=== PATIENT | female | born 1990 | race Caucasian/White ===

== ENCOUNTER 2016-07-13 17:40 | Emergency (ER) | payer MEDICARE, OTHER ==
[2016-07-13 17:50] VITALS: RESP 20
[2016-07-13] MEDS ORDERED: methylPREDNISolone SOD SUCCI 125 MG/2 ML VIAL IV STA (17:57)
[2016-07-13] MEDS ORDERED: diphenhydrAMINE 50 MG/ML 1 ML VIAL IVP STA (17:57)
[2016-07-13] MEDS ORDERED: FAMOTIDINE 20 MG/2 ML VIAL IV STA (17:57)
--- NOTE | 2016-07-13 19:28 | ED ---
Allergic Reaction HPI - General Chief complaint: Allergic Reaction Stated complaint: Allergic Reaction Time Seen by Provider: 07/13/16 18:09 Source: patient Mode of arrival: ambulatory Limitations: no limitations - History of Present Illness Initial Comments: This 25-year-old white female presents complaining of an ALLERGIC reaction to bee sting. She states that he be got in her car, went down her shirt and stung her in the upper abdomen. This occurred shortly prior to arrival. She felt dizzy, short of breath, and had some chest pain afterwards. She denies any throat swelling or rash. She did have her EpiPen with her but did not take it. She does have a history of previous severe ALLERGIC reaction to bee stings. No other injuries or complaints or modifying factors. - Related Data Home Medications Medication Instructions Recorded Confirmed Dextroamphetamine/Amphetamine 30 mg PO BID 07/13/16 07/13/16 [Adderall] EPINEPHrine [Epipen 2-Kulwinder] 0.3 mg IM ONCE PRN 07/13/16 07/13/16 OXcarbazepine [Trileptal] 150 mg PO BID 07/13/16 07/13/16 valACYclovir HCL [Valtrex] 500 mg PO DAILY 07/13/16 07/13/16 Previous Rx's Medication Instructions Recorded Famotidine [Pepcid] 20 mg PO BID #6 tablet 07/13/16 diphenhydrAMINE [Benadryl] 25 mg PO QID PRN #12 capsule 07/13/16 predniSONE 20 mg PO BID #6 tab 07/13/16 Allergies Allergy/AdvReac Type Severity Reaction Status Date / Time bee pollen Allergy Anaphylaxis Verified 07/13/16 17:51 Penicillins Allergy Unknown Verified 07/13/16 17:56 Childhood Pertussis Vaccines Allergy Unknown Verified 07/13/16 17:56 Review of Systems ROS Statement: Those systems with pertinent positive or pertinent negative responses have been documented in the HPI. ROS Other: All systems not noted in ROS Statement are negative. Past Medical History Past Medical History: Seizure Disorder History of Any Multi-Drug Resistant Organisms: None Reported Past Surgical History: Section Past Psychological History: ADD/ADHD Smoking Status: Never smoker Past Alcohol Use History: None Reported Past Drug Use History: None Reported General Exam - General Exam Comments Initial Comments: GENERAL: The patient is well nourished and well hydrated. VITAL SIGNS: Heart rate, blood pressure, respiratory rate reviewed as recorded in nurse's notes. EYES: Pupils are round and reactive. Extraocular movements are intact. No conjunctival / lid redness or swelling. ENT: No external evidence of injury, swelling, or ecchymosis. Airway is patent. Throat is clear. NECK: Nontender. No swelling or evidence of injury. No subcutaneous emphysema. Trachea is midline. No thyroid mass. HEART: Regular rate and rhythm. Good peripheral pulses. LUNGS/CHEST: Breath sounds clear and equal bilaterally. No rales, rhonchi, or wheezes. No ecchymosis, subcutaneous emphysema, or tenderness. ABDOMEN: Abdomen soft without tenderness. No palpable masses or organomegaly. No peritoneal signs. No abdominal wall swelling or ecchymosis. EXTREMITIES: No extremity tenderness. Normal muscle tone and function. No thoracolumbar tenderness. NEUROLOGIC: Sensation is grossly intact. Cranial nerve exam reveals face is symmetrical, tongue is midline, speech is clear. SKIN: There is a small puncture-type wound present to the upper abdomen. There is no associated erythema or swelling or other rash or change in pigmentation. PSYCHIATRIC: Alert and oriented. Appropriate behavior and judgment with possible mild anxiety. Limitations: no limitations Course Vital Signs 07/13/16 07/13/16 17:47 18:02 Temperature 97.2 F L Pulse Rate 120 H 111 H Respiratory 20 20 Rate Blood Pressure 121/63 124/74 O2 Sat by Pulse 100 99 Oximetry Medical Decision Making - Medical Decision Making The patient was seen and examined. An IV was established. She did receive some Solu-Medrol, Pepcid, and Benadryl IV. She is watched for quite some time. No further abnormalities are identified. Is felt that she is stable for discharge. She is counseled regarding her diagnosis in detail and leaves in no severe distress. Disposition Clinical Impression: Allergic reaction to insect sting Disposition: HOME SELF-CARE Condition: Good Instructions: Insect Bite or Sting (ED) Prescriptions: diphenhydrAMINE [Benadryl] 25 mg PO QID PRN #12 capsule PRN Reason: Allergic Reaction Famotidine [Pepcid] 20 mg PO BID #6 tablet predniSONE 20 mg PO BID #6 tab Referrals: Jesse Jacskon MD [Primary Care Provider] - 1-2 days Time of Disposition: 19:25
[2016-07-13 20:11] VITALS: BP 108/57; PULSE 102; TEMP 97.9
== END 2016-07-13 20:10 | disposition home or self-care (01) ==
LOC: EC 17:40
DX: T63.441A Toxic effect of venom of bees, accidental (unintentional), initial encounter (principal); S31.139A Puncture wound of abdominal wall without foreign body, unspecified quadrant without penetration into peritoneal cavity, initial encounter; G40.909 Epilepsy, unspecified, not intractable, without status epilepticus; F90.9 Attention-deficit hyperactivity disorder, unspecified type; Z79.899 Other long term (current) drug therapy; Z88.0 Allergy status to penicillin; Z88.7 Allergy status to serum and vaccine; Z91.030 Bee allergy status
CPT/HCPCS: 99282; 96374; 96375 ×2; J1200; J2930

== ENCOUNTER 2019-06-27 12:29 | Emergency (ER) | payer BC, OTHER ==
[2019-06-27] MEDS ORDERED: EPINEPHrine 1 MG/ML 1 ML AMP IM STA (12:38)
[2019-06-27] MEDS ORDERED: diphenhydrAMINE 50 MG/ML 1 ML VIAL IVP STA (12:38)
[2019-06-27] MEDS ORDERED: methylPREDNISolone SOD SUCCI 125 MG/2 ML VIAL IV STA (12:38)
[2019-06-27] MEDS ORDERED: FAMOTIDINE 20 MG/2 ML VIAL IV STA (12:38)
--- NOTE | 2019-06-27 12:58 | ED ---
Skin/Abscess/FB HPI - General Chief complaint: Skin/Abscess/Foreign Body Stated complaint: bee sting Time Seen by Provider: 06/27/19 12:30 Source: patient, RN notes reviewed Mode of arrival: wheelchair Limitations: no limitations - History of Present Illness Initial comments: This a 28-year-old female with a history of bee sting ALLERGIES who was stung on the left arm by a bee just prior to admission. She states she was going to give herself her EpiPen but it is . She states she's feeling weak and some difficulty breathing and swallowing no overt fevers chills or sweats. She has one isolated bee sting she states on the back of her left upper arm. MD complaint: insect bite/sting - Related Data Home Medications Medication Instructions Recorded Confirmed Dextroamphetamine/Amphetamine 30 mg PO BID 07/13/16 07/13/16 [Adderall] EPINEPHrine [Epipen 2-Kulwinder] 0.3 mg IM ONCE PRN 07/13/16 07/13/16 OXcarbazepine [Trileptal] 150 mg PO BID 07/13/16 07/13/16 valACYclovir HCL [Valtrex] 500 mg PO DAILY 07/13/16 07/13/16 Previous Rx's Medication Instructions Recorded Famotidine [Pepcid] 20 mg PO BID #6 tablet 07/13/16 diphenhydrAMINE [Benadryl] 25 mg PO QID PRN #12 capsule 07/13/16 predniSONE [Deltasone] 20 mg PO BID #6 tab 07/13/16 EPINEPHrine (Auto Inject) [Epipen] 0.3 mg IM ONCE PRN #2 pen 06/27/19 predniSONE [Deltasone] 20 mg PO BID #10 tab 06/27/19 Allergies Allergy/AdvReac Type Severity Reaction Status Date / Time bee pollen Allergy Anaphylaxis Verified 06/27/19 12:33 Penicillins Allergy Unknown Verified 06/27/19 12:33 Childhood Pertussis Vaccines Allergy Unknown Verified 06/27/19 12:33 Review of Systems ROS Statement: Those systems with pertinent positive or pertinent negative responses have been documented in the HPI. ROS Other: All systems not noted in ROS Statement are negative. Past Medical History Past Medical History: Seizure Disorder History of Any Multi-Drug Resistant Organisms: None Reported Past Surgical History: Section Past Psychological History: ADD/ADHD Smoking Status: Never smoker Past Alcohol Use History: None Reported Past Drug Use History: None Reported General Exam - General Exam Comments Initial Comments: This is a well-developed well-nourished awake alert oriented 3 female Limitations: no limitations General appearance: alert, anxious, in distress Head exam: Present: atraumatic, normocephalic, normal inspection Eye exam: Present: normal appearance, PERRL, EOMI. Absent: scleral icterus, conjunctival injection, periorbital swelling ENT exam: Present: mucous membranes moist, other (I'll posterior pharyngeal erythema no edema seen.) Neck exam: Present: normal inspection, full ROM, other (No stridor JVD or bruits). Absent: tenderness, meningismus, lymphadenopathy Respiratory exam: Present: normal lung sounds bilaterally. Absent: respiratory distress, wheezes, rales, rhonchi, stridor Cardiovascular Exam: Present: normal rhythm, tachycardia, normal heart sounds. Absent: systolic murmur, diastolic murmur, rubs, gallop, clicks GI/Abdominal exam: Present: soft, normal bowel sounds. Absent: distended, tenderness, guarding, rebound, rigid Extremities exam: Present: full ROM, normal capillary refill, other (A wheel seen to the posterior left proximal arm no foreign body seen.). Absent: tenderness, pedal edema, joint swelling, calf tenderness Back exam: Present: normal inspection Neurological exam: Present: alert, oriented X3, CN II-XII intact Psychiatric exam: Present: normal affect, normal mood Skin exam: Present: warm, dry, intact, normal color. Absent: rash Course Vital Signs 06/27/19 06/27/19 06/27/19 12:31 12:54 13:16 Temperature 98.4 F Pulse Rate 102 H 115 H 123 H Respiratory 16 18 16 Rate Blood Pressure 114/69 121/72 O2 Sat by Pulse 100 100 100 Oximetry - Reevaluation(s) Reevaluation #1: 06/27/19 13:11 Patient is feeling somewhat better at this time she did have some nausea with it is improved. Medical Decision Making - Medical Decision Making Reevaluation the patient does feel much improved though still a bit jittery. She would like to go home we did discuss the findings she'll be discharged with a new EpiPen prescription as well as a short course of steroids. Disposition Clinical Impression: Bee sting reaction Disposition: HOME SELF-CARE Condition: Good Instructions (If sedation given, give patient instructions): Insect Bite or Sting (ED) Additional Instructions: Description escribed Prescriptions: predniSONE [Deltasone] 20 mg PO BID #10 tab EPINEPHrine (Auto Inject) [Epipen] 0.3 mg IM ONCE PRN #2 pen PRN Reason: Anaphylaxis Is patient prescribed a controlled substance at d/c from ED?: No Referrals: Jesse Jackson MD [Primary Care Provider] - 1-2 days
[2019-06-27 14:05] VITALS: BP 109/52; PULSE 122; RESP 18; TEMP 98
== END 2019-06-27 14:05 | disposition home or self-care (01) ==
LOC: EC 12:29
DX: S40.862A Insect bite (nonvenomous) of left upper arm, initial encounter (principal); G40.909 Epilepsy, unspecified, not intractable, without status epilepticus; F90.9 Attention-deficit hyperactivity disorder, unspecified type; Z79.899 Other long term (current) drug therapy; Z91.030 Bee allergy status; Z88.0 Allergy status to penicillin; Z88.7 Allergy status to serum and vaccine; T63.441A Toxic effect of venom of bees, accidental (unintentional), initial encounter
CPT/HCPCS: 96374; 96372; 96375 ×2; 99284; J0171; J1200; J2930

== ENCOUNTER 2021-12-28 14:01 | Emergency (ER) | payer OTHER, BC ==
[2021-12-28 14:18] VITALS: TEMP 97.8
[2021-12-28] MEDS ORDERED: HYDROmorphone 1 MG/ML 1 ML SYRINGE IM STA (16:50)
[2021-12-28] MEDS ORDERED: KETOROLAC 15 MG/ML 1 ML VIAL IM STA (16:50)
--- NOTE | 2021-12-28 16:54 | ED ---
General Adult HPI - General Chief complaint: Back Pain/Injury Stated complaint: [facility] - Back Injury Time Seen by Provider: 12/28/21 16:04 Source: patient, RN notes reviewed Mode of arrival: ambulatory Limitations: no limitations - History of Present Illness Initial comments: Patient is a pleasant 31-year-old female presenting to the emergency department back pain. Patient does have history of chronic neck problems and a bulging disc. Patient went back to work today. Patient had to assist with restraining a uncontrollable student. The student pulled downwards and the patient had increase discomfort of her neck as well as lower back. Patient still has discomfort of these places which is moderate to severe. No weakness. No incontinence or retention of bowel or bladder. - Related Data Home Medications Medication Instructions Recorded Confirmed Dextroamphetamine/Amphetamine 30 mg PO BID 07/13/16 07/13/16 [Adderall] EPINEPHrine [Epipen 2-Kulwinder] 0.3 mg IM ONCE PRN 07/13/16 07/13/16 OXcarbazepine [Trileptal] 150 mg PO BID 07/13/16 07/13/16 valACYclovir HCL [Valtrex] 500 mg PO DAILY 07/13/16 07/13/16 Previous Rx's Medication Instructions Recorded Famotidine [Pepcid] 20 mg PO BID #6 tablet 07/13/16 diphenhydrAMINE [Benadryl] 25 mg PO QID PRN #12 capsule 07/13/16 predniSONE [Deltasone] 20 mg PO BID #6 tab 07/13/16 EPINEPHrine (Auto Inject) [Epipen] 0.3 mg IM ONCE PRN #2 pen 06/27/19 predniSONE [Deltasone] 20 mg PO BID #10 tab 06/27/19 Cyclobenzaprine [Flexeril] 10 mg PO TID PRN #12 tablet 12/28/21 predniSONE [Deltasone] 20 mg PO BID #10 tab 12/28/21 Allergies Allergy/AdvReac Type Severity Reaction Status Date / Time bee pollen Allergy Anaphylaxis Verified 12/28/21 14:18 Penicillins Allergy Unknown Verified 12/28/21 14:18 Childhood Pertussis Vaccines Allergy Unknown Verified 12/28/21 14:18 Review of Systems ROS Statement: Those systems with pertinent positive or pertinent negative responses have been documented in the HPI. ROS Other: All systems not noted in ROS Statement are negative. Constitutional: Denies: fever Eyes: Denies: eye pain ENT: Denies: ear pain Respiratory: Denies: cough Cardiovascular: Denies: chest pain Endocrine: Denies: fatigue Gastrointestinal: Denies: abdominal pain Genitourinary: Denies: urgency Musculoskeletal: Reports: as per HPI Skin: Denies: rash Neurological: Denies: weakness Past Medical History Past Medical History: Seizure Disorder Additional Past Medical History / Comment(s): Back and neck issues History of Any Multi-Drug Resistant Organisms: None Reported Past Surgical History: Section Past Psychological History: ADD/ADHD Smoking Status: Never smoker Past Alcohol Use History: Occasional Past Drug Use History: None Reported General Exam Limitations: no limitations General appearance: alert, in no apparent distress Head exam: Present: atraumatic Eye exam: Present: normal appearance, PERRL Neck exam: Present: normal inspection, tenderness (Mild diffuse) Respiratory exam: Present: normal lung sounds bilaterally Cardiovascular Exam: Present: regular rate, normal rhythm Expanded Peripheral pulses: 2+: Radial (R), Radial (L) GI/Abdominal exam: Present: soft. Absent: tenderness Extremities exam: Present: normal inspection, full ROM. Absent: tenderness Back exam: Present: tenderness (Mild lower to mid lumbar) Neurological exam: Present: alert. Absent: motor sensory deficit Expanded Motor strength exam: RUE: 5, LUE: 5, RLE: 5, LLE: 5 Psychiatric exam: Present: normal affect, normal mood Skin exam: Present: normal color Course Vital Signs 12/28/21 12/28/21 14:16 17:00 Temperature 97.8 F Pulse Rate 106 H 101 H Respiratory 20 16 Rate Blood Pressure 140/76 127/69 O2 Sat by Pulse 99 98 Oximetry Medical Decision Making - Medical Decision Making Patient reevaluated and improved however is receptive to further medication patient updated on results and need for follow-up - Radiology Data Radiology results: image reviewed (Lumbar and cervical x-rays show no acute process) Disposition Clinical Impression: Cervical strain Disposition: HOME SELF-CARE Condition: Stable Instructions (If sedation given, give patient instructions): Acute Low Back Pain (ED), Cervical Strain (ED) Additional Instructions: Prescriptions sent to pharmacy. Please do follow-up with [facility] tomorrow. Return for increased pain, weakness, loss of control of bowel or bladder, loss of sensation, worsening symptoms or other concerns. Prescriptions: predniSONE [Deltasone] 20 mg PO BID #10 tab Cyclobenzaprine [Flexeril] 10 mg PO TID PRN #12 tablet PRN Reason: Pain Is patient prescribed a controlled substance at d/c from ED?: No Referrals: Jesse Jackson MD [Primary Care Provider] - 1-2 days Time of Disposition: 18:16
[2021-12-28 17:10] VITALS: BP 127/69; PULSE 101; RESP 16
--- NOTE | 2021-12-28 17:51 | XR ---
EXAMINATION TYPE: XR cervical spine comp DATE OF EXAM: 12/28/2021 COMPARISON: NONE HISTORY: Pain TECHNIQUE: 6 views FINDINGS: Cervical vertebra have normal spacing and alignment. Posterior elements are intact. Neural foramina are widely patent. Atlantoaxial facet joint is normal. There are no cervical ribs. IMPRESSION: Negative cervical spine exam. No fracture.
--- NOTE | 2021-12-28 17:53 | XR ---
EXAMINATION TYPE: XR lumbosacral spine min 4V DATE OF EXAM: 12/28/2021 COMPARISON: NONE HISTORY: Injury. TECHNIQUE: 5 views FINDINGS: The lumbar vertebrae have normal alignment. Posterior elements are intact. Disc spaces are normal. Sacroiliac joints are intact. No compression fracture. IMPRESSION: Normal lumbar spine exam. No fracture.
[2021-12-28] MEDS ORDERED: methylPREDNISolone SOD SUCCI 125 MG/2 ML VIAL IV STA (18:14)
[2021-12-28] MEDS ORDERED: ORPHENADRINE 30 MG/ML 2 ML VIAL IVP STA (18:14)
[2021-12-28] MEDS ORDERED: ACET/COD 300 MG/30 MG STARTER PACK 6 TAB BTL PO STA (18:14)
== END 2021-12-28 19:17 | disposition home or self-care (01) ==
LOC: EC 14:01
DX: S16.1XXA Strain of muscle, fascia and tendon at neck level, initial encounter (principal); M54.50 Low back pain, unspecified; Z91.030 Bee allergy status; Z88.0 Allergy status to penicillin; Z88.7 Allergy status to serum and vaccine; X50.9XXA Other and unspecified overexertion or strenuous movements or postures, initial encounter; Y92.89 Other specified places as the place of occurrence of the external cause
CPT/HCPCS: 72050; 72110; 99283; 96374; 96375; 96372; J2360; J2930; J1170; J1885

== ENCOUNTER → 2021-12-29 | Outpatient (CLI) | payer OTHER ==
--- NOTE | 2021-12-29 11:40 | XR ---
EXAMINATION TYPE: XR thoracic spine complete DATE OF EXAM: 12/29/2021 COMPARISON: None HISTORY: Thoracic spine sprain TECHNIQUE: 3 view thoracic spine FINDINGS: There are 12 thoracic type vertebral bodies. Pedicles are intact. Disc heights are preserve d. Vertebral body heights are preserved. Alignment is normal. IMPRESSION: 1. No acute osseous abnormality thoracic spine
== END | disposition home or self-care (01) ==
LOC: RADXRMAIN 11:04
PROVIDERS: ATTEND Emergency Medicine
DX: S23.3XXA Sprain of ligaments of thoracic spine, initial encounter (principal)
CPT/HCPCS: 72072

== ENCOUNTER 2024-05-02 06:55 | Day surgery (SDC) | payer OTHER ==
[~2024-05-02 06:55] MED LIST: LIDOCAINE 1% (10MG/ML) FOR IV START INTRADERMA PRN
[2024-05-02] MEDS: IV FLUID CONTINUATION 1,000 ML IV ONE (07:09)
[2024-05-02 07:16] VITALS: TEMP 98.7
[2024-05-02] MEDS: LACTATED RINGERS 1,000 ML IV SCH (07:26)
[2024-05-02 07:36] LABS: Glucose,Whole Blood 79 mg/dL (70-110)
[2024-05-02] MEDS ORDERED: fentaNYL (PF) 50 MCG/ML 2 ML AMP ONE (07:46)
[2024-05-02] MEDS ORDERED: LIDOCAINE 2% (PF) 20 MG/ML 5 ML VIAL ONE (07:46)
[2024-05-02] MEDS ORDERED: ONDANSETRON 4 MG/2 ML VIAL ONE (07:46)
[2024-05-02] MEDS ORDERED: PROPOFOL 10 MG/ML 20 ML VIAL IV ONE (07:46)
--- NOTE | 2024-05-02 08:05 | P.PCN ---
Date of Procedure: 05/02/24 Procedure(s) Performed: Brief history: Patient is a pleasant 33-year-old white female scheduled for an elective upper endoscopy as well as colonoscopy as a part of evaluation of GERD/abdominal pain and change in bowel habits with intermittent rectal bleeding Procedure performed: Esophagogastroduodenoscopy with biopsy Colonoscopy Preoperative diagnosis: GERD/epigastric pain Change in bowel habits and intermittent rectal bleeding Anesthesia: MAC Procedure: After informed consent was obtained from the patient was brought into the endoscopy unit and IV sedation was administered by anesthesia under continuous monitoring. Initially upper endoscopy was done. The Olympus GF 160 video endoscope was inserted inserted into the mouth and esophagus intubated without any difficulty and was gradually advanced into the stomach and duodenum and carefully examined. The bulb and second part of the duodenum appeared normal. Apices were done from the duodenum rule out celiac disease. The scope was then withdrawn into the stomach adequately insufflated with air and upon careful examination the antrum had patchy areas of erythema consistent with gastritis and biopsies were done from this area. Mucosa of the body, cardia and fundus appeared normal. The scope was then withdrawn into the esophagus. The GE junction was located at 40 cm to the incisors. It appeared regular with no erythema erosions or ulcerations. Rest of the esophagus appeared normal. Patient tolerated the procedure well. At this time the patient continued to remain sedation. Initial digital rectal examination was normal. Olympus CF 160 video colonoscope was then inserted into the rectum and gradually advanced to the cecum without any difficulty. Careful examination was performed as the scope was gradually being withdrawn. The prep was excellent. The cecum, ascending colon, transverse colon, descending colon, sigmoid colon and rectum appeared normal. Retroflexion was performed in the rectum and no lesions were noted. Patient tolerated the procedure well. Impression: 1. Upper endoscopy revealed mild antral gastritis but no evidence of esophagitis or peptic ulcer disease 2. Colonoscopy was within normal limits with no evidence of colorectal neoplasia Recommendations: Findings of this examination were discussed with the patient as well as her family. She was advised to follow-up with the biopsy results. Continue with current medications and follow antireflux measures. Recommend high-fiber diet and fiber supplements if needed. Follow-up in the office in 2 to 3 weeks.
[2024-05-02 08:15] VITALS: RESP 14
[2024-05-02 08:28] VITALS: BP 104/70; PULSE 105
== END 2024-05-02 08:45 | disposition home or self-care (01) ==
LOC: ORWHC2ENDO 06:55
PROVIDERS: ATTEND Internal Medicine Gastroenterology
DX: K29.50 Unspecified chronic gastritis without bleeding (principal); K21.9 Gastro-esophageal reflux disease without esophagitis; F90.9 Attention-deficit hyperactivity disorder, unspecified type; D64.9 Anemia, unspecified; K56.600 Partial intestinal obstruction, unspecified as to cause; G40.909 Epilepsy, unspecified, not intractable, without status epilepticus; Z88.0 Allergy status to penicillin; Z91.018 Allergy to other foods; Z88.8 Allergy status to other drugs, medicaments and biological substances; Z79.899 Other long term (current) drug therapy
CPT/HCPCS: 81025; 88305; 45378; 43239; J2405; J3010; J2704; J2003